=== PATIENT | female | born 1970 | race Caucasian/White ===

== ENCOUNTER 2017-01-15 18:17 | Emergency (ER) | payer BC ==
[~2017-01-15] VITALS: Ht 160 cm; Wt 117.8 kg
[~2017-01-15 18:17] MED LIST: ADVIL200 MG PO; ASPIR-LOW81 MG PO; ATORVASTATIN CA20 MG PO; Ecotrin PO; FENOFIBRATE160 M1 PO; GLIMEPIRIDE2 MG PO; HYDROCHLOROTHIA25 MG PO; Hydrodiuril,Oretic,E PO; JANUVIA100 MG PO; JANUVIA25 M1 PO; LEVORA-281 EACH PO; LOFIBRA,TRIGLI160 MG PO; LOPRESSOR25 MG PO; LOSARTAN POTASS25 MG PO; LOW DOSE ASPIRI81 M1 PO; Lopressor PO; METFORMIN HCL1000 MG PO; METFORMIN HCL500 M1 PO; Nitrostat,NitroQuick SL; PREDNISONE50 MG PO; SERTRALINE HCL25 MG PO; SERTRALINE HCL50 MG PO; VALTREX50 MG/ML PO; ZANTAC150 MG PO; ZOFRAN4 MG PO
[2017-01-15 19:21] LABS: HEMATOCRIT 38.8 % (36.0-46.0); MCH 27.6 PG (29.0-34.0); MCHC 32.2 G/DL (30.0-36.0); MCV 85.7 FL (83-99); MEAN PLAT.VOLUME 10.4 uM^3 (9.5-12.4); PLATELET COUNT 309 K/uL (156-360); RBC DIS.WIDTH-SD 43.8 % (39-53); RED BLOOD COUNT 4.53 M/uL (3.80-5.20); WHITE BLOOD COUNT 12.2 K/uL (4.1-10.2)
[2017-01-15 19:40] LABS: CHLORIDE 103 mEq/L (99-109); SODIUM 141 mEq/L (136-147)
[2017-01-15 19:42] LABS: GLUCOSE 81 mg/dL (70-99)
[2017-01-15 19:43] LABS: ANION GAP 9 MEQ/L (2-14)
[2017-01-15 19:44] LABS: TOTAL BILIRUBIN 0.3 mg/dL (0.0-1.0)
[2017-01-15 19:46] LABS: ALKALINE PHOSPHATASE 93 IU/L (3-129); GFR ESTIMATE (CALCULATED) > 59 mL/min/
[2017-01-15 19:47] LABS: UREA NITROGEN (BUN) 12 mg/dL (9-23)
[2017-01-15 19:55] LABS: QUANTITATIVE HCG < 4.0 MIU/ML
[2017-01-15 20:01] LABS: LIPASE 24 U/L (1.0-51.0)
[2017-01-15] MEDS ORDERED: ULTRAM50 MG PO (20:48)
[2017-01-15] MEDS ORDERED: FLAGYL500 MG PO ×2 (20:48→20:52)
[2017-01-15] MEDS ORDERED: CIPRO500 MG PO (20:48)
[2017-01-15] MEDS ORDERED: BENTYL10 MG PO (21:05)
[2017-01-15] MEDS ORDERED: BACTRIM,SEPT1 TABLET PO (21:05)
[2017-01-15 21:22] VITALS: BP 131/68
== END 2017-01-15 21:22 | disposition home or self-care (01) ==
LOC: EME 18:17
PROVIDERS: Physician Assistant
DX: K52.9 Noninfective gastroenteritis and colitis, unspecified (principal); K92.2 Gastrointestinal hemorrhage, unspecified; Z87.891 Personal history of nicotine dependence; E11.9 Type 2 diabetes mellitus without complications; E78.5 Hyperlipidemia, unspecified; I10 Essential (primary) hypertension; Z79.84 Long term (current) use of oral hypoglycemic drugs; Z79.82 Long term (current) use of aspirin
CPT/HCPCS: 74177; 80053; 83690; 84702; 85027; 99281; 99284; J7040

== ENCOUNTER → 2017-05-30 | Outpatient (CLI) | payer BC ==
[~2017-05-30] MED LIST changes: +ADVIL,NUPRIN,M200 MG PO; +BACTRIM,SEPT1 TABLET PO; +BENTYL10 MG PO; +CIPRO500 MG PO; +FLAGYL500 MG PO; +GLUCOPHAGE500 MG PO; +GLUCOTROL10 MG PO; -METFORMIN HCL1000 MG PO; -SERTRALINE HCL50 MG PO; +ULTRAM50 MG PO; +ZOLOFT50 MG PO
== END | disposition home or self-care (01) ==
LOC: CDC 09:57
DX: Z01.810 Encounter for preprocedural cardiovascular examination (principal); R94.31 Abnormal electrocardiogram [ECG] [EKG]
CPT/HCPCS: 93000

== ENCOUNTER 2017-06-03 08:50 | Day surgery (SDC) | payer BC ==
[~2017-06-03] VITALS: Ht 160 cm; Wt 121.0 kg
[~2017-06-03 08:50] MED LIST changes: -ADVIL,NUPRIN,M200 MG PO
[2017-06-03] MEDS ORDERED: ADVIL,NUPRIN,M200 MG PO (09:17)
[2017-06-03 09:29] VITALS: BP 138/64
[2017-06-03 09:42] LABS: POINT-OF-CARE METER ID UU14174212
[2017-06-03 11:25] LABS: POINT-OF-CARE METER ID UU13113675
[2017-06-03 11:55] VITALS: BP 145/76
[2017-06-03 13:00] VITALS: BP 124/85
== END 2017-06-03 13:05 | disposition home or self-care (01) ==
LOC: SDC 08:50
PROVIDERS: Obstetrics & Gynecology Gynecology
PROC: 0UDB8ZX Extraction of Endometrium, Via Natural or Artificial Opening Endoscopic, Diagnostic (ICD-10-PCS; principal; 2017-06-03)
DX: N91.1 Secondary amenorrhea (principal); R93.8 Abnormal findings on diagnostic imaging of other specified body structures; E11.9 Type 2 diabetes mellitus without complications; Z79.84 Long term (current) use of oral hypoglycemic drugs; E66.9 Obesity, unspecified; Z68.42 Body mass index [BMI] 45.0-49.9, adult; Z87.891 Personal history of nicotine dependence; Z79.82 Long term (current) use of aspirin; Z88.0 Allergy status to penicillin
CPT/HCPCS: 82948; 84702; 88305; J1100; J2250; J2405; J3010